=== PATIENT | male | born 1935 ===

== ENCOUNTER 2016-09-16 08:20 | Outpatient (CLI) | payer MEDICARE, OTHER | END 2016-09-16 08:21 | disposition home or self-care (01) | DX: E11.9 Type 2 diabetes mellitus without complications (principal); I25.10 Atherosclerotic heart disease of native coronary artery without angina pectoris; I10 Essential (primary) hypertension ==

== ENCOUNTER 2016-11-17 08:49 | Outpatient (CLI) | payer MEDICARE, OTHER | END 2016-11-17 08:50 | disposition home or self-care (01) | DX: G47.33 Obstructive sleep apnea (adult) (pediatric) (principal) | CPT/HCPCS: 99214; G0463 ==

== ENCOUNTER 2016-12-30 07:37 | Outpatient (CLI) | payer MEDICARE, OTHER | END 2016-12-30 07:38 | disposition home or self-care (01) | DX: I25.10 Atherosclerotic heart disease of native coronary artery without angina pectoris (principal); E11.9 Type 2 diabetes mellitus without complications; E78.5 Hyperlipidemia, unspecified; I10 Essential (primary) hypertension ==

== ENCOUNTER 2017-09-02 08:00 | Outpatient (CLI) | payer MEDICARE, OTHER ==
[2017-09-02 12:59] LABS: ALBUMIN 4.2 g/dL (3.2-5.5); ALBUMIN/GLOBULIN RATIO 1.2 (1.0-2.2); ALKALINE PHOSPHATASE 48 IU/L (42-121); ALT ALANINE AMINOTRANSFERASE 17 IU/L (10-60); AST ASPARTATE AMINOTRANSFERASE 26 IU/L (10-42); BILIRUBIN,TOTAL 0.5 mg/dL (0.2-1.0); BUN - BLOOD UREA NITROGEN 21 mg/dL (6-20); CARBON DIOXIDE - CO2 28 mmol/L (21-32); CHLORIDE 104 mmol/L (101-111); CHOL/HDL RATIO 2.6 (<5.0); CHOLESTEROL 121 mg/dL; CREATININE 1.2 mg/dL (0.6-1.2); GFR - MDRD 58 (>89); GLUCOSE 94 mg/dL (70-100); HDL CHOLESTEROL 46 mg/dL; LDL CHOLESTEROL,CALCULATED 66 mg/dL; LDL/HDL RATIO 1.4 (<3.6); SODIUM 138 mmol/L (135-145); TOTAL PROTEIN 7.7 g/dL (6.7-8.2); VLDL CHOLESTEROL 9 mg/dL
[2017-09-02 13:18] LABS: HB2 TOTAL 14.2 g/dL; HEMOGLOBIN A1C 0.66 g/dL; HEMOGLOBIN A1C % 6.4 % (4.6-6.2)
== END 2017-09-02 08:01 | disposition home or self-care (01) ==
LOC: LAB.WCP 08:00
PROVIDERS: ATTEND Family Medicine
DX: I25.10 Atherosclerotic heart disease of native coronary artery without angina pectoris (principal); E11.9 Type 2 diabetes mellitus without complications; E78.5 Hyperlipidemia, unspecified; I10 Essential (primary) hypertension; Z12.5 Encounter for screening for malignant neoplasm of prostate
CPT/HCPCS: 36415; 80053; 80061; 82043; 83036; G0103; 83721; 84153

== ENCOUNTER 2017-11-29 09:15 | Outpatient (CLI) | payer MEDICARE, OTHER | END 2017-11-29 09:16 | disposition home or self-care (01) | LOC: SC 09:15 | PROVIDERS: ATTEND Internal Medicine Pulmonary Disease | DX: G47.33 Obstructive sleep apnea (adult) (pediatric) (principal) | CPT/HCPCS: 99213; G0463; 99212 ==

== ENCOUNTER 2018-02-22 07:42 | Outpatient (CLI) | payer MEDICARE, OTHER ==
[2018-02-22 13:34] LABS: ALBUMIN 3.9 g/dL (3.2-5.5); ALBUMIN/GLOBULIN RATIO 1.1 (1.0-2.2); ALKALINE PHOSPHATASE 50 IU/L (42-121); ALT ALANINE AMINOTRANSFERASE 17 IU/L (10-60); AST ASPARTATE AMINOTRANSFERASE 28 IU/L (10-42); BILIRUBIN,TOTAL 0.7 mg/dL (0.2-1.0); BUN - BLOOD UREA NITROGEN 26 mg/dL (6-20); CALCIUM 9.1 mg/dL (8.5-10.3); CARBON DIOXIDE - CO2 27 mmol/L (21-32); CHLORIDE 106 mmol/L (101-111); CHOL/HDL RATIO 2.4 (<5.0); CHOLESTEROL 97 mg/dL; CREATININE 1.1 mg/dL (0.6-1.2); GFR - MDRD 64 (>89); GLUCOSE 87 mg/dL (70-100); HDL CHOLESTEROL 41 mg/dL; SODIUM 139 mmol/L (135-145); TOTAL PROTEIN 7.5 g/dL (6.7-8.2)
[2018-02-22 13:55] LABS: HB2 TOTAL 14.1 g/dL; HEMOGLOBIN A1C 0.62 g/dL; HEMOGLOBIN A1C % 6.2 % (4.6-6.2)
[2018-02-22 14:28] LABS: LDL CHOLESTEROL,DIRECT 54 mg/dL; LDLD/HDL RATIO 1.3 (<3.6)
== END 2018-02-22 07:43 | disposition home or self-care (01) ==
LOC: LAB.WCP 07:42
PROVIDERS: ATTEND Family Medicine
DX: E11.9 Type 2 diabetes mellitus without complications (principal); I10 Essential (primary) hypertension; E78.5 Hyperlipidemia, unspecified; I25.10 Atherosclerotic heart disease of native coronary artery without angina pectoris; R04.0 Epistaxis
CPT/HCPCS: 36415; 80053; 80061; 83036; 83721

== ENCOUNTER 2018-03-01 14:03 | Outpatient (CLI) | payer MEDICARE, OTHER | END 2018-03-01 14:04 | disposition home or self-care (01) | LOC: SC 14:03 | PROVIDERS: ATTEND Internal Medicine Pulmonary Disease | DX: G47.33 Obstructive sleep apnea (adult) (pediatric) (principal) | CPT/HCPCS: 99213; G0463; 99212 ==

== ENCOUNTER 2018-09-12 08:00 | Outpatient (CLI) | payer MEDICARE, OTHER ==
[2018-09-12 13:37] LABS: ALBUMIN 4.3 g/dL (3.2-5.5); ALBUMIN/GLOBULIN RATIO 1.2 (1.0-2.2); ALKALINE PHOSPHATASE 48 IU/L (42-121); ALT ALANINE AMINOTRANSFERASE 18 IU/L (10-60); AST ASPARTATE AMINOTRANSFERASE 27 IU/L (10-42); BILIRUBIN,TOTAL 0.6 mg/dL (0.2-1.0); BUN - BLOOD UREA NITROGEN 25 mg/dL (6-20); CALCIUM 9.3 mg/dL (8.5-10.3); CARBON DIOXIDE - CO2 27 mmol/L (21-32); CHLORIDE 106 mmol/L (101-111); CHOL/HDL RATIO 2.6 (<5.0); CHOLESTEROL 107 mg/dL; GFR - MDRD 72 (>89); GLUCOSE 114 mg/dL (70-100); HDL CHOLESTEROL 41 mg/dL; LDL CHOLESTEROL,CALCULATED 58 mg/dL; LDL/HDL RATIO 1.4 (<3.6); SODIUM 139 mmol/L (135-145); TOTAL PROTEIN 7.8 g/dL (6.7-8.2); VLDL CHOLESTEROL 8 mg/dL
[2018-09-12 13:54] LABS: HB2 TOTAL 15.3 g/dL; HEMOGLOBIN A1C 0.71 g/dL; HEMOGLOBIN A1C % 6.4 % (4.6-6.2)
== END 2018-09-12 23:59 | disposition home or self-care (01) ==
LOC: LAB.WCP 08:00
PROVIDERS: ATTEND Family Medicine
DX: E11.9 Type 2 diabetes mellitus without complications (principal); I25.10 Atherosclerotic heart disease of native coronary artery without angina pectoris; E78.5 Hyperlipidemia, unspecified; I10 Essential (primary) hypertension
CPT/HCPCS: 36415; 80053; 80061; 82043; 83036; 83721; 84443

== ENCOUNTER 2019-03-20 | Outpatient (CLI) | payer MEDICARE, OTHER | END 2019-03-20 09:28 | disposition home or self-care (01) | DX: G47.33 Obstructive sleep apnea (adult) (pediatric) (principal) | CPT/HCPCS: 99213; G0463; 99212 ==

== ENCOUNTER 2019-04-12 08:00 | Outpatient (CLI) | payer MEDICARE, OTHER ==
[2019-04-12 12:30] LABS: CREATININE,URINE 174.3 mg/dL; MICROALBUM/CREATININE RATIO,UR 9.8 ug/mg (<30.0); MICROALBUMIN,URINE 1.7 mg/dL (0-300.0)
[2019-04-12 12:36] LABS: CALCIUM 9.2 mg/dL (8.5-10.3); CREATININE 1.1 mg/dL (0.6-1.2)
[2019-04-12 13:29] LABS: HB2 TOTAL 13.6 g/dL; HEMOGLOBIN A1C 0.61 g/dL; HEMOGLOBIN A1C % 6.3 % (4.6-6.2)
== END 2019-04-12 23:59 | disposition home or self-care (01) ==
LOC: LAB.WCP 08:00
PROVIDERS: ATTEND Family Medicine
DX: I25.10 Atherosclerotic heart disease of native coronary artery without angina pectoris (principal); E11.9 Type 2 diabetes mellitus without complications; E78.5 Hyperlipidemia, unspecified; I10 Essential (primary) hypertension; D12.6 Benign neoplasm of colon, unspecified
CPT/HCPCS: 36415; 80048; 82043; 82570; 83036

== ENCOUNTER 2019-07-25 09:00 | Outpatient (CLI) | payer MEDICARE, OTHER ==
[2019-07-25 18:47] LABS: BILIRUBIN,URINE NEGATIVE (NEGATIVE); GLUCOSE, URINE (UA) NEGATIVE (NEGATIVE); KETONES,URINE (UA) TRACE mg/dL (NEGATIVE); LEUKOCYTE ESTERASE, URINE NEGATIVE (NEGATIVE); NITRITE,URINE NEGATIVE (NEGATIVE); OCCULT BLOOD,URINE LARGE (NEGATIVE); PROTEIN,URINE 100 mg/dL (NEGATIVE); UROBILINOGEN,URINE 0.2 (NORMAL) E.U./dL (NORMAL)
[2019-07-25 18:51] LABS: CLARITY,URINE CLOUDY (CLEAR)
[2019-07-25 18:59] LABS: BACTERIA,URINE Rare /HPF (None Seen); RBC,URINE TNTC /HPF (0-5); SQUAMOUS EPITHELIAL CELL,UR RARE Squamous (<= Few)
== END 2019-07-25 23:59 | disposition home or self-care (01) ==
LOC: LAB.WCP 09:00
PROVIDERS: ATTEND Family Medicine
DX: R31.0 Gross hematuria (principal)
CPT/HCPCS: 81001; 81003; 87086

== ENCOUNTER 2019-08-02 08:05 | Outpatient (CLI) | payer MEDICARE, OTHER ==
[2019-08-02 08:50] LABS: CALCIUM 9.4 mg/dL (8.5-10.3); CREATININE 1.2 mg/dL (0.6-1.2)
[2019-08-02] MEDS ORDERED: IOVERSOL 320 100 ML VIAL IVP ONE ×2 (08:53→09:12)
--- NOTE | 2019-08-03 10:36 | CT Report ---
Reason: HEMATURIA GROSS Procedure Date: 08/02/2019 Accession Number: [id number] / [id number] Procedure: CT - IVP CPT Code: Final Report FULL RESULT: EXAM: CT ABDOMEN AND PELVIS WITHOUT AND WITH CONTRAST (CT IVP) EXAM DATE: 08/02/2019 09:15 AM. CLINICAL HISTORY: HEMATURIA GROSS. COMPARISONS: None. TECHNIQUE: Routine helical imaging was performed through the kidneys, ureters and bladder in the precontrast, postcontrast and delayed phase. IV Contrast: 100 cc Optiray 320. Reconstructions: Coronal and sagittal. In accordance with CT protocol optimization, one or more of the following dose reduction techniques were utilized for this exam: automated exposure control, adjustment of mA and/or KV based on patient size, or use of iterative reconstructive technique. FINDINGS: Lung Bases: Unremarkable. Liver: Few small hypoattenuating liver lesions are indeterminate, possibly small cysts. No liver masses. Gallbladder/Bile Ducts: Unremarkable. Spleen: Normal. Pancreas: Normal. Adrenal Glands: Normal. Kidneys/Bladder: Right Kidney/Ureter: No renal or ureteral stones. No hydronephrosis or hydroureter. No renal mass. No filling defects in the right ureter. Left Kidney/Ureter: No renal or ureteral stones. No hydronephrosis or hydroureter. No renal mass. No filling defect in the left ureter. Bladder: No stones. Focal 1.4 x 1.7 cm mass projecting into the lumen of the left inferior urinary bladder () is worrisome for urothelial malignancy. No other urinary bladder masses seen. Peritoneal Cavity/Bowel: Unremarkable stomach. Normal caliber bowel loops without obstruction. No enlarged intraperitoneal or retroperitoneal lymph nodes. No intra-abdominal masses. No inflammation. Pelvic Organs: Enlarged prostate measuring approximately 6 x 6.1 cm with median lobe impression of the inferior bladder neck. No enlarged pelvic or inguinal lymph nodes. Vasculature: No aneurysms or other significant abnormality. Bones: No significant abnormality. Other: None. IMPRESSION: 1. 1.4 x 1.7 cm mass projecting into the lumen of the left inferior urinary bladder just superior to the orifice of the left ureter is worrisome for urothelial malignancy. Cystoscopy should be considered for further evaluation. 2. Otherwise unremarkable appearance of the kidneys and ureters without evidence for calculi or additional masses. 3. Incidental prostatomegaly. 4. No evidence for metastatic disease in the abdomen. RADIA
== END 2019-08-02 08:06 | disposition home or self-care (01) ==
LOC: DI 08:05
PROVIDERS: ATTEND Family Medicine
DX: R31.0 Gross hematuria (principal); N32.89 Other specified disorders of bladder
CPT/HCPCS: 36415; 74178; 80048; Q9967

== ENCOUNTER 2019-09-28 08:00 | Outpatient (CLI) | payer MEDICARE, OTHER ==
[2019-09-28 12:53] LABS: BASOPHILS # (AUTO) 0.1 10^3/uL (0.0-0.1); BASOPHILS % (AUTO) 1.3 %; EOSINOPHILS # (AUTO) 0.2 10^3/uL (0.0-0.7); EOSINOPHILS % (AUTO) 4.9 %; HGB - HEMOGLOBIN 12.7 g/dL (14.0-18.0); LYMPHOCYTES # (AUTO) 1.5 10^3/uL (1.5-3.5); LYMPHOCYTES % (AUTO) 38.2 %; MEAN CORPUSCULAR HEMOGLOBIN 31.1 pg (27.0-31.0); MEAN CORPUSCULAR HGB CONC 33.6 g/dL (32.0-36.0); MEAN CORPUSCULAR VOLUME 92.4 fL (80.0-94.0); MEAN PLATELET VOLUME 10.4 fL (7.4-11.4); MONOCYTES # (AUTO) 0.5 10^3/uL (0.0-1.0); MONOCYTES % (AUTO) 12.2 %; NEUTROPHILS # (AUTO) 1.7 10^3/uL (1.5-6.6); NEUTROPHILS % (AUTO) 43.1 %; PLT - PLATELET COUNT 146 10^3/uL (130-450); RED BLOOD COUNT 4.09 10^6/uL (4.70-6.10); RED CELL DISTRIBUTION WIDTH 13.3 % (12.0-15.0); WHITE BLOOD COUNT 3.9 x10^3/uL (4.8-10.8)
[2019-09-28 13:22] LABS: CREATININE,URINE 135.1 mg/dL; MICROALBUM/CREATININE RATIO,UR 28.9 ug/mg (<30.0); MICROALBUMIN,URINE 3.9 mg/dL (0-300.0)
[2019-09-28 13:24] LABS: ALBUMIN 3.9 g/dL (3.2-5.5); ALBUMIN/GLOBULIN RATIO 1.3 (1.0-2.2); ALKALINE PHOSPHATASE 44 IU/L (42-121); ALT ALANINE AMINOTRANSFERASE 18 IU/L (10-60); AST ASPARTATE AMINOTRANSFERASE 26 IU/L (10-42); BILIRUBIN,TOTAL 0.8 mg/dL (0.2-1.0); BUN - BLOOD UREA NITROGEN 23 mg/dL (6-20); CALCIUM 8.8 mg/dL (8.5-10.3); CARBON DIOXIDE - CO2 26 mmol/L (21-32); CHLORIDE 106 mmol/L (101-111); CHOL/HDL RATIO 3.2 (<5.0); CHOLESTEROL 120 mg/dL; CREATININE 1.1 mg/dL (0.6-1.2); GFR - MDRD 64 (>89); GLUCOSE 78 mg/dL (70-100); HDL CHOLESTEROL 37 mg/dL; LDL CHOLESTEROL,CALCULATED 75 mg/dL; SODIUM 141 mmol/L (135-145); TOTAL PROTEIN 6.9 g/dL (6.7-8.2); VLDL CHOLESTEROL 8 mg/dL
[2019-09-28 13:26] LABS: HB2 TOTAL 13.1 g/dL; HEMOGLOBIN A1C 0.62 g/dL; HEMOGLOBIN A1C % 6.5 % (4.6-6.2)
== END 2019-09-28 23:59 | disposition home or self-care (01) ==
LOC: LAB.WCP 08:00
PROVIDERS: ATTEND Family Medicine
DX: I25.10 Atherosclerotic heart disease of native coronary artery without angina pectoris (principal); E11.9 Type 2 diabetes mellitus without complications; E78.5 Hyperlipidemia, unspecified; I10 Essential (primary) hypertension
CPT/HCPCS: 36415; 80053; 80061; 82043; 82570; 83036; 83721; 84443; 85025

== ENCOUNTER 2020-01-01 11:16 | Outpatient (CLI) | payer MEDICARE, OTHER ==
--- NOTE | 2020-01-01 10:31 | SLEEP CARE CONSULTATION ---
Information from patient questionnaire entered by Hayley Romeo. I have reviewed and concur with the information entered by Hayley Romeo. This document represents the service I personally performed and the decisions made by me, Niurka Gonsalez, RN, MSN, DIRECTOR [employer]. History of Present Illness Service Date and Time: 01/01/2020 1116 Previous diagnosis: Severe, Obstructive Sleep Apnea-Hypopnea Syndrome AHI: 37.5 (in 2012) Reason for follow up: other (8 month) Equipment type: CPAP Equipment obtained from: [facility] (getting supplies as needed) Mask style: Nasal Backup mask available: Yes (old mask ) Last cushion change: a couple months ago Prior sleep studies: Yes CPAP Compliance Data - Data Reviewed with Patient Average duration of nightly device use: 7.2 Compliance rate %: 91.1 (90 days) Current pressure setting (cmH2O): 7-9 Humidity settin Heated hose settin Average residual AHI: 2.3 Average large leak: 1 sec Subjective Patient concerns: reports: nasal congestion (nasal congestion- not interferring with CPAP use ), other (mask dislodging in sleep). denies: aerophagia, mask discomfort, air blowing in eyes, mask leak noise, condensation in mask/hose, dry mouth, nose, throat Observed to snore while using device: No Current pressure setting perceived as: comfortable On therapy, patient: reports: sleeping better, more rested overall. 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 Obstructive Sleep Apnea-Hypopnea Syndrome, severe, with good treatment compliance and good apnea control. On CPAP therapy, the patient has better sleep quality and is more rested overall. Patient was advised to update mask supplies more frequently to reduce mask dislodging with rationale discussed. I will also request new headgear for his mask style that sits lower on base of skull. Nasal congestion can be reduced with a higher humidity. Patient's apnea severity and rationale for treatment to reduce apnea, improve sleep quality and reduce hypertension, cardiovascular and cerebrovascular events was reviewed. 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 In addition, he is advised to take his CPAP to his daughters when he visit. I again reviewed his sleep study results and explained how his rae oxygen was 78%. For maximum benefit of treatment he is advised to use CPAP with all sleep. In addition, consistent CPAP use can reduce risk of some arrhythmias. * Continue auto CPAP pressure at 7-9 cmH2O * Change headgear * Use CPAP with all sleep. * Notify me if snoring with mask or feeling that the pressure is too much or too little * Attempt to lose some weight * Call this office if any problems using CPAP * Return for follow up in 1 year , or sooner if concerns arise Visit Type: Telehealth Video Video Type: [place] [employer] Patient Location: Home Location of Provider: Home Patient agrees and consents to this telehealth visit type: Yes Patient agrees to have their insurance billed: Yes Time Spent with Patient (minutes): 21 Provider Statement: I spent 100% of the Telehealth Video Call with the patient with greater than 50% spent counseling the patient and coordination of care.
== END 2020-01-01 11:17 | disposition home or self-care (01) ==
LOC: SC 11:16
PROVIDERS: ATTEND Nurse Practitioner Family
DX: G47.33 Obstructive sleep apnea (adult) (pediatric) (principal); E66.3 Overweight; Z68.25 Body mass index [BMI] 25.0-25.9, adult

== ENCOUNTER 2020-09-05 08:10 | Outpatient (CLI) | payer MEDICARE, OTHER ==
[2020-09-05 12:05] LABS: BASOPHILS # (AUTO) 0.1 10^3/uL (0.0-0.1); BASOPHILS % (AUTO) 1.3 %; EOSINOPHILS # (AUTO) 0.2 10^3/uL (0.0-0.7); EOSINOPHILS % (AUTO) 6.3 %; HGB - HEMOGLOBIN 12.9 g/dL (14.0-18.0); LYMPHOCYTES # (AUTO) 1.3 10^3/uL (1.5-3.5); LYMPHOCYTES % (AUTO) 35.2 %; MEAN CORPUSCULAR HEMOGLOBIN 30.7 pg (27.0-31.0); MEAN CORPUSCULAR HGB CONC 33.4 g/dL (32.0-36.0); MEAN CORPUSCULAR VOLUME 91.9 fL (80.0-94.0); MONOCYTES # (AUTO) 0.5 10^3/uL (0.0-1.0); MONOCYTES % (AUTO) 12.3 %; NEUTROPHILS # (AUTO) 1.7 10^3/uL (1.5-6.6); NEUTROPHILS % (AUTO) 44.9 %; PLT - PLATELET COUNT 185 10^3/uL (130-450); RED CELL DISTRIBUTION WIDTH 13.2 % (12.0-15.0); WHITE BLOOD COUNT 3.8 x10^3/uL (4.8-10.8)
[2020-09-05 12:48] LABS: ALBUMIN 4.3 g/dL (3.2-5.5); ALBUMIN/GLOBULIN RATIO 1.3 (1.0-2.2); ALKALINE PHOSPHATASE 53 IU/L (42-121); ALT ALANINE AMINOTRANSFERASE 19 IU/L (10-60); AST ASPARTATE AMINOTRANSFERASE 27 IU/L (10-42); BILIRUBIN,TOTAL 0.5 mg/dL (0.2-1.0); BUN - BLOOD UREA NITROGEN 26 mg/dL (6-20); CALCIUM 9.3 mg/dL (8.5-10.3); CARBON DIOXIDE - CO2 27 mmol/L (21-32); CHLORIDE 106 mmol/L (101-111); CHOL/HDL RATIO 2.5 (<5.0); CHOLESTEROL 118 mg/dL; CREATININE 1.3 mg/dL (0.6-1.2); GLUCOSE 92 mg/dL (70-100); HDL CHOLESTEROL 47 mg/dL; HEMOGLOBIN A1c% 6.7 % (4.27-6.07); TOTAL PROTEIN 7.6 g/dL (6.7-8.2)
[2020-09-05 12:50] LABS: CREATININE,URINE 155.6 mg/dL; MICROALBUM/CREATININE RATIO,UR 2.6 ug/mg (<30.0); MICROALBUMIN,URINE 0.4 mg/dL (0-300.0)
== END 2020-09-05 23:59 | disposition home or self-care (01) ==
LOC: LAB.WCP 08:10
PROVIDERS: ATTEND Internal Medicine
DX: E11.9 Type 2 diabetes mellitus without complications (principal)
CPT/HCPCS: 36415; 80053; 80061; 82043; 82570; 83036; 83721; 84443; 85025

== ENCOUNTER 2021-01-08 08:00 | Outpatient (CLI) | payer MEDICARE, OTHER ==
[2021-01-08 12:07] LABS: CALCIUM 9.1 mg/dL (8.5-10.3); CREATININE 1.2 mg/dL (0.6-1.2); POTASSIUM 3.4 mmol/L (3.5-5.0)
[2021-01-08 12:32] LABS: ESTIMATED AVERAGE GLUCOSE 134 mg/dL (70-100); HEMOGLOBIN A1c% 6.3 % (4.27-6.07)
== END 2021-01-08 23:59 | disposition home or self-care (01) ==
LOC: LAB.WCP 08:00
PROVIDERS: ATTEND Internal Medicine
DX: E11.9 Type 2 diabetes mellitus without complications (principal)
CPT/HCPCS: 36415; 80048; 83036

== ENCOUNTER 2021-02-03 13:00 | Outpatient (CLI) | payer MEDICARE, OTHER ==
--- NOTE | 2021-02-03 13:24 | SLEEP CARE CONSULTATION ---
Information from patient questionnaire entered by Hayley Romeo. I have reviewed and concur with the information entered by Hayley Romeo. This document represents the service I personally performed and the decisions made by me, Fransisco Winter MD, [facility]. History of Present Illness Service Date and Time: 02/03/2021 1300 Previous diagnosis: Severe, Obstructive Sleep Apnea-Hypopnea Syndrome AHI: 37.5 (in 2011) Reason for follow up: annual (last seen 12/2019) Equipment type: CPAP Equipment obtained from: [facility] (no longer giving supplies) Mask style: Nasal Prior sleep studies: Yes Year and Where: 2011 - [facility] Type of Sleep Study: Polysomnography HPI additional information: HPI: Mr. Mason returned today for an annual follow up of nasal CPAP therapy. He was diagnosed to have severe obstructive sleep apnea-hypopnea syndrome 37.5 in 2011). The patient wears the [employer]ics DreamWear nasal cushion mask. He continues to use the device nightly and all through the night. The compliance report shows usage in 169 nights out of the past 180 nights, averaging 6.9 hours a night. He complained of no particular problem with the device such as soreness on the face, dry nose, epistaxis, nasal congestion or headache. He thinks that the pressure of 7 -9 cmH2O is comfortable. On the CPAP therapy he does not notice much difference. His notices no snore at all with or without CPAP. The average residual AHI is 2.8; and average time in large leak per day is 6 seconds. The 90th percentile pressure is 8.5 cmH2O. CPAP Compliance Data - Data Reviewed with Patient Average duration of nightly device use: 7 hr 2 min Compliance rate %: 91.7 (180 days) Current pressure setting (cmH2O): 7-9 Humidity settin Heated hose settin Average residual AHI: 2.8 Average large leak: 6 sec Subjective Patient concerns: reports: other (don't feel the pressure after it has been on) Initial [place] Sleepiness Scale score: 9 (in 2011) Current [place] Sleepiness Scale score: 5 Allergies and Home Medications Drug allergies reviewed: Yes Home medication list reviewed: Yes Review of Systems Review of systems same as previous: Yes Physical Exam Height: 5 ft 10 in Weight: 178 lb Body Mass Index: 25.5 BMI Classification: Overweight Impression and Plan IMPRESSION: 1. Obstructive Sleep Apnea-Hypopnea Syndrome, severe, with the patient continuing to do well on nasal CPAP therapy. He has excellent compliance and significant clinical improvement. The current pressure appears effective and comfortable. Because the patients Agustin Baton DreamStation device is being recalled, I recommend he stop using it, especially when there is no clear subjective benefit from the treatment. PLAN: 1. Discontinue CPAP. 2. [place] her device at [email or web address]. 3. Return for a follow up in 2 months. If he continues to do fine without using a CPAP, I will repeat the in-laboratory polysomnography to see if he still has significant sleep disordered breathing. Visit Type: In Office Time Spent with Patient (minutes): 15 Provider Statement: I spent 100% of the Face to Face Visit with the patient with greater than 50% spent counseling the patient and coordination of care.
== END 2021-02-03 13:01 | disposition home or self-care (01) ==
LOC: SC 13:00
PROVIDERS: ATTEND Internal Medicine Pulmonary Disease
DX: G47.33 Obstructive sleep apnea (adult) (pediatric) (principal); E66.3 Overweight; Z68.25 Body mass index [BMI] 25.0-25.9, adult
CPT/HCPCS: 99212; G0463

== ENCOUNTER 2021-04-07 09:16 | Outpatient (CLI) | payer MEDICARE, OTHER ==
--- NOTE | 2021-04-07 11:10 | SLEEP CARE CONSULTATION ---
Information from patient questionnaire entered by Hayley Romeo. I have reviewed and concur with the information entered by Hayley Romeo. This document represents the service I personally performed and the decisions made by me, Fransisco Winter MD, [facility]. History of Present Illness Service Date and Time: 04/07/2021915 Previous diagnosis: Severe, Obstructive Sleep Apnea-Hypopnea Syndrome AHI: 37.5 (in 2011) Reason for follow up: other (2 month) Equipment type: CPAP Equipment obtained from: [facility] (no longer giving supplies) Mask style: Nasal Prior sleep studies: Yes Year and Where: 2011 - [facility] Type of Sleep Study: Polysomnography HPI additional information: HPI: Mr. Mason returned today for an annual follow up of nasal CPAP therapy after instructed to discontinue CPAP usage because of the recall (he was recommended to discontinue because he said he slept just fine without it). He was diagnosed to have severe obstructive sleep apnea-hypopnea syndrome 37.5 in 2011). The plan is to see how is does off the treatment. He, however, continues to use the device nightly to about 4 am then takes it off and sleep a few more hours. He again states that he would rather not use the CPAP if he does not have too. CPAP Compliance Data - Data Reviewed with Patient Average duration of nightly device use: 6 hr 42 min Compliance rate %: 80 (60 days) Current pressure setting (cmH2O): 7-9 Humidity settin Heated hose settin Average residual AHI: 3.4 Average large leak: 0 Subjective Initial [place] Sleepiness Scale score: 9 (in 2011) Current [place] Sleepiness Scale score: 2 Allergies and Home Medications Drug allergies reviewed: Yes Home medication list reviewed: Yes Review of Systems Review of systems same as previous: Yes Physical Exam Height: 5 ft 10 in Weight: 178 lb Body Mass Index: 25.5 BMI Classification: Overweight Impression and Plan IMPRESSION: 1. Obstructive Sleep Apnea-Hypopnea Syndrome, severe, with the patient continuing use his CPAP regularly. Apparently, he does not recall being instructed to not use his device during his last clinic visit. PLAN: 1. Discontinue CPAP. 2. Order a home sleep apnea test (HSAT). 3. Return for a follow after the test. Follow up with Sleep Care in: 1-2 months Visit Type: In Office Time Spent with Patient (minutes): 15 Provider Statement: I spent 100% of the Face to Face Visit with the patient with greater than 50% spent counseling the patient and coordination of care.
== END 2021-04-07 09:17 | disposition home or self-care (01) ==
LOC: SC 09:16
PROVIDERS: ATTEND Internal Medicine Pulmonary Disease
DX: G47.33 Obstructive sleep apnea (adult) (pediatric) (principal)
CPT/HCPCS: 99212; G0463

== ENCOUNTER 2021-04-10 08:55 | Outpatient (CLI) | payer MEDICARE, OTHER | END 2021-04-10 08:56 | disposition home or self-care (01) | LOC: SC 08:55 | PROVIDERS: ATTEND Internal Medicine Pulmonary Disease | DX: G47.33 Obstructive sleep apnea (adult) (pediatric) (principal); R09.02 Hypoxemia | CPT/HCPCS: G0399 ×2; 95806 ==

== ENCOUNTER 2021-12-15 09:55 | Outpatient (CLI) | payer MEDICARE, OTHER ==
[2021-12-15 12:49] LABS: CALCIUM 9.3 mg/dL (8.5-10.3); CREATININE 1.3 mg/dL (0.6-1.2); POTASSIUM 3.5 mmol/L (3.5-5.0)
[2021-12-15 13:13] LABS: ESTIMATED AVERAGE GLUCOSE 140 mg/dL (70-100); HEMOGLOBIN A1c% 6.5 % (4.27-6.07)
[2021-12-15 13:21] LABS: MICROALBUM/CREATININE RATIO,UR 25.8 ug/mg (<30.0); MICROALBUMIN,URINE 3.4 mg/dL (0-300.0)
== END 2021-12-15 09:56 | disposition home or self-care (01) ==
LOC: LAB.N 09:55
PROVIDERS: ATTEND Nurse Practitioner
DX: E11.9 Type 2 diabetes mellitus without complications (principal)
CPT/HCPCS: 36415; 80048; 82043; 82570; 83036

== ENCOUNTER 2022-07-27 13:56 | Outpatient (CLI) | payer MEDICARE, OTHER ==
--- NOTE | 2022-07-27 14:39 | XRAY Report ---
PROCEDURE: Chest 2 View X-Ray INDICATIONS: PNEUMONIA TECHNIQUE: 2 views of the chest were acquired. COMPARISON: Lung bases on CT IVP 08/02/2019. FINDINGS: Surgical changes and devices: Post median sternotomy and CABG. Lungs and pleura: No pleural effusions or pneumothorax. Trace left basilar opacity. No silhouetting seen. Mediastinum: Mediastinal contours are normal. Heart size is normal. Bones and chest wall: No suspicious bony abnormalities. Soft tissues appear unremarkable. IMPRESSION: Trace left basilar opacity. Favor atelectasis over pneumonia. Reviewed by: Kd Pineda MD on 07/27/2022 2:38 PM PST Approved by: Kd Pineda MD on 07/27/2022 2:38 PM PST Station ID: [id number]
== END 2022-07-27 13:57 | disposition home or self-care (01) ==
LOC: DI 13:56
PROVIDERS: ATTEND Nurse Practitioner
DX: J18.9 Pneumonia, unspecified organism (principal)

== ENCOUNTER 2022-08-31 13:18 | Outpatient (CLI) | payer MEDICARE, OTHER ==
[2022-08-31 20:04] VITALS: BP 142/60
--- NOTE | 2022-08-31 20:04 | SLEEP CARE CONSULTATION ---
Information from patient questionnaire entered by Yuniel Carbajal. I have reviewed and concur with the information entered by Yuniel Carbajal. This document represents the service I personally performed and the decisions made by me, Fransisco Winter MD, [facility]. History of Present Illness Service Date and Time: 08/31/2022 1318 Previous diagnosis: Severe, Obstructive Sleep Apnea-Hypopnea Syndrome AHI: 37.5 (in 2011) Reason for follow up: annual (LAST SEEN 03/2021) Equipment type: CPAP (WOOD) Equipment obtained from: [employer] [facility] (no longer giving supplies) Mask style: Nasal Prior sleep studies: Yes Year and Where: 2011 - [facility] Type of Sleep Study: Polysomnography HPI additional information: Mr. Mason was diagnosed to have moderate obstructive sleep apnea-hypopnea syndrome and returns today for follow up of CPAP therapy. The patient purchased the device from [employer] [facility]. He wears a nasal mask. He uses the [employer] DreamStation 1 nightly and all through the night (this is a replacement to his recalled machine). The compliance report shows that he uses the device 141 nights out of the past 180 nights, averaging 6.4 hours a night. He complains of no particular problem with the device such as soreness on the face, dry nose, epistaxis, nasal congestion or headache. He thinks that the pressure of 7 - 9 cmH2O is comfortable. On the CPAP therapy he notices improvement in his sleep quality, and that he wakes up feeling fresher in the morning and more awake/alert during the day. His notices no snore at all. [place] Sleepiness Scale score is 7. The average residual AHI is 3.7 ; and average time in large leak per day is 44 seconds a night. The 90th percentile pressure is 8.5 cmH2O. Sleep Study - Results Type of Sleep Study: Polysomnography Prior sleep studies: Yes Year and Where: 2011 - [facility] CPAP Compliance Data - Data Reviewed with Patient Average duration of nightly device use: 6HRS, 25MIN 35SEC Compliance rate %: 91.7 (02/18/22-08/16/22) Current pressure setting (cmH2O): 7-9 Average residual AHI: 3.7 Subjective Initial [place] Sleepiness Scale score: 9 (in 2011) Current [place] Sleepiness Scale score: 7 (08/31/22) Allergies and Home Medications Drug allergies reviewed: Yes Home medication list reviewed: Yes Allergy and home medication list: Allergies No Known Drug Allergies Allergy (Verified 01/31/14 20:54) Review of Systems Review of systems same as previous: Yes Physical Exam Vital signs obtained and entered by: YUNIEL Yeung MA Blood Pressure: 142/60 (LEFT ARM) Cuff size: regular Heart Rate: 67 O2 Saturation: 97 Height: 5 ft 10 in Weight: 173 lb 12.8 oz Body Mass Index: 24.9 BMI Classification: Normal Impression and Plan IMPRESSION: 1. Obstructive Sleep Apnea-Hypopnea Syndrome, moderate (AHI was 18.3 by a home sleep apnea test in 2020) with the patient continuing to do well on nasal CPAP therapy. He has good compliance and significant clinical benefits. The current pressure appears effective and comfortable. Overall, he is very satisfied with treatment and plans to continue with it long-term. No adjustment is necessary today. Because he has lost more weight (182 down to 168 lbs) and does not snore when not using his CPAP, I will repeat the in-laboratory polysomnography to make sure he still has significant sleep-disordered breathing. PLAN: 1. Continue with autoCPAP set at 7 - 9 cm H2O. 1. Schedule an in-laboratory polysomnography. 2. Return for follow up after the sleep study. Follow up with Sleep Care in: 1-2 months Plan: PSG Visit Type: In Office Time Spent with Patient (minutes): 15 Provider Statement: I spent 100% of the Face to Face Visit with the patient with greater than 50% spent counseling the patient and coordination of care.
== END 2022-08-31 13:19 | disposition home or self-care (01) ==
LOC: SC 13:18
PROVIDERS: ATTEND Internal Medicine Pulmonary Disease
DX: G47.33 Obstructive sleep apnea (adult) (pediatric) (principal)
CPT/HCPCS: 99212; G0463

== ENCOUNTER 2022-09-24 20:33 | Outpatient (CLI) | payer MEDICARE, OTHER | END 2022-09-24 20:34 | disposition home or self-care (01) | LOC: SC 20:33 | PROVIDERS: ATTEND Internal Medicine Pulmonary Disease | DX: G47.33 Obstructive sleep apnea (adult) (pediatric) (principal) | CPT/HCPCS: 95810 ==

== ENCOUNTER 2022-10-05 14:00 | Outpatient (CLI) | payer MEDICARE, OTHER ==
--- NOTE | 2022-10-05 12:08 | SLEEP CARE CONSULTATION ---
Information from patient questionnaire entered by Kayleigh Carbajal. I have reviewed and concur with the information entered by Kayleigh Carbajal. This document represents the service I personally performed and the decisions made by me, Fransisco Winter MD, [facility]. History of Present Illness Service Date and Time: 10/05/2022 1140 Initial [employer] Sleepiness Scale score: 9 (in 2011) Current [employer] Sleepiness Scale score: 4 (10/05/22) Additional HPI information: Mr. Mason was called for follow up of the sleep study he had on 09/24/2022. The polysomnography showed that the patient had reduced sleep efficiency due to frequent awakenings throughout the night. The sleep architecture was abnormal for sleep fragmentation and reduced amount of time spent in REM and slow wave sleep (N3). Respiratory monitoring showed severe obstructive sleep apnea- hypopnea (AHI = 35.6) associated with frequent arousals, oxyhemoglobin desaturation and mild hypoxia (rae oxygen saturation of 82%). The respiratory events occurred predominantly during supine sleep (supine AHI = 65.1; non-supine = 6.18). Snore was moderate in intensity. There was no significant periodic leg movement of sleep. Cardiac rhythm was sinus rhythm with frequent premature ventricular contractions, occasionally in trigeminy. No abnormal behavior (parasomnia) observed during the night. The patient was informed of these findings. I explained to him the pathophysiology behind obstructive sleep apnea. The patient is presently using his CPAP every night and all night set at 7 9 cmH2O. Sleep Study - Results Type of Sleep Study: Polysomnography (COMPLETED 09-24-22) Prior sleep studies: Yes Year and Where: 2011 - [facility] Allergies and Home Medications Drug allergies reviewed: Yes Home medication list reviewed: Yes Allergy and home medication list: Allergies No Known Drug Allergies Allergy (Verified 01/31/14 20:54) Review of Systems Review of systems same as previous: Yes Physical Exam Vital signs obtained and entered by: VIA MONICA Yeung MA Height: 5 ft 10 in (PER PT ) Weight: 170 lb (PER PT) Body Mass Index: 24.3 BMI Classification: Normal Impression and Plan IMPRESSION: 1. Obstructive Sleep Apnea-Hypopnea Syndrome, severe, associated with mild hypoxemia and sleep fragmentation. The patient is already on CPAP therapy but wondering if his recent weight loss improves the sleep-related breathing disorder. Apparently, it did not. The patient plans to continue using his CPAP. PLAN: 1. Continue CPAP set at 7 - 9 cm H2O. 2. Return for follow up in a year or earlier if there is any problem. Follow up with Sleep Care in: 1 year Visit Type: Telehealth Phone Patient Location: Home Location of Provider: Office Patient agrees and consents to this telehealth visit type: Yes Patient agrees to have their insurance billed: Yes Time Spent with Patient (minutes): 15 Provider Statement: I spent 100% of the Telehealth Phone Call with the patient with greater than 50% spent counseling the patient and coordination of care.
== END 2022-10-05 14:01 | disposition home or self-care (01) ==
LOC: SC 14:00
PROVIDERS: ATTEND Internal Medicine Pulmonary Disease
DX: G47.33 Obstructive sleep apnea (adult) (pediatric) (principal)

== ENCOUNTER 2022-12-31 08:00 | Outpatient (CLI) | payer MEDICARE, OTHER | END 2022-12-31 23:59 | disposition home or self-care (01) | LOC: LAB.N 08:00 | PROVIDERS: ATTEND Internal Medicine Hematology & Oncology | DX: C90.00 Multiple myeloma not having achieved remission (principal) | CPT/HCPCS: 81599; 84156; 84166; 86335 ==

== ENCOUNTER 2023-01-07 07:30 | Outpatient (CLI) | payer MEDICARE, OTHER ==
[2023-01-07] MEDS ORDERED: LIDOCAINE-MPF 1% 5 ML VIAL ONE (08:27)
[2023-01-07 08:29] LABS: INR 1.1 (0.8-1.2); PT - PROTHROMBIN TIME 11.9 secs (9.9-12.6)
[2023-01-07] MEDS ORDERED: fentaNYL 100 MCG/2 ML VIAL ONE (08:31)
[2023-01-07] MEDS ORDERED: MIDAZOLAM 2 MG/2 ML VIAL ONE (08:31)
[2023-01-07 08:36] LABS: PARTIAL THROMBOPLASTIN TIME 27.7 secs (24.9-33.3)
[2023-01-07] MEDS ORDERED: fentaNYL 100 MCG/2 ML VIAL IVP SCH (09:05)
[2023-01-07] MEDS ORDERED: MIDAZOLAM 2 MG/2 ML VIAL IVP ONE (09:05)
[2023-01-07] MEDS ORDERED: LACTATED RINGERS 500 ML IV ONE (09:34)
--- NOTE | 2023-01-07 10:02 | CT Report ---
PROCEDURE: BONE MARROW BX W/ASPIRATION Sedation analgesia for 15 minutes. INDICATIONS: MYELOMA TECHNIQUE: The indications, alternatives, benefits, risks, and possible complications of the procedure were comm unicated to the patient. Informed written consent from the patient was obtained and placed in the art. Continuous EKG and hemodynamic monitoring was started by trained personnel. For radiation dose reduction, the following was used: automated exposure control, adjustment of mA and/or kV according to patient size. The patient was brought to the CT suite and parole or probation officer spiral CT imaging was performed with localization g rid. The appropriate site for percutaneous access to the biopsy target was marked, was prepped and d raped sterilely, and was infused with local anaesthesia. Under CT guidance, a core biopsy trocar and needle set was advanced to the biopsy target, and specimen(s) were obtained. The trocar and needle were then removed, and the patient was sent for post-procedure monitoring. COMPARISON: None. FINDINGS: Biopsy site: Right posterior iliac bone. Needle: 11 gauge biopsy needle with introducer trocar. Number of passes: 1 Medications: 1% lidocaine for local anaesthesia. IV Fentanyl and Versed for conscious sedation for 15 minutes (see nursing record). Complications: None. IMPRESSION: Successful CT-guided bone marrow aspiration and biopsy. Reviewed by: Gerald Mercer MD on 01/07/2023 10:01 AM PDT Approved by: Gerald Mercer MD on 01/07/2023 10:01 AM PDT Station ID: [id number]
[2023-01-07 12:03] VITALS: BP 125/60
== END 2023-01-07 07:31 | disposition home or self-care (01) ==
LOC: DI 07:30
PROVIDERS: ATTEND Internal Medicine Hematology & Oncology
DX: C90.00 Multiple myeloma not having achieved remission (principal); N18.30 Chronic kidney disease, stage 3 unspecified; D64.9 Anemia, unspecified; E61.1 Iron deficiency; E29.1 Testicular hypofunction; D72.819 Decreased white blood cell count, unspecified
CPT/HCPCS: 36415; 38222; 82947; 85610; 85730; 88184; 88185; 88305; 88311; 88313; 88341; 88360; J7120

== ENCOUNTER 2023-03-17 07:45 | Outpatient (CLI) | payer MEDICARE, OTHER ==
[2023-03-17 12:16] LABS: EOSINOPHILS # (AUTO) 0.3 10^3/uL (0.0-0.7); HCT - HEMATOCRIT 37.9 % (42.0-52.0); HGB - HEMOGLOBIN 12.8 g/dL (14.0-18.0); LYMPHOCYTES # (AUTO) 1.4 10^3/uL (1.5-3.5); LYMPHOCYTES % (AUTO) 33.5 %; MEAN CORPUSCULAR HEMOGLOBIN 30.9 pg (27.0-31.0); MEAN CORPUSCULAR HGB CONC 33.8 g/dL (32.0-36.0); MEAN CORPUSCULAR VOLUME 91.5 fL (80.0-94.0); MEAN PLATELET VOLUME 10.1 fL (7.4-11.4); MONOCYTES # (AUTO) 0.5 10^3/uL (0.0-1.0); MONOCYTES % (AUTO) 11.7 %; NEUTROPHILS # (AUTO) 1.9 10^3/uL (1.5-6.6); NEUTROPHILS % (AUTO) 46.6 %; PLT - PLATELET COUNT 179 10^3/uL (130-450); RED BLOOD COUNT 4.14 10^6/uL (4.70-6.10); RED CELL DISTRIBUTION WIDTH 13.2 % (12.0-15.0); WHITE BLOOD COUNT 4.1 x10^3/uL (4.8-10.8)
[2023-03-17 13:11] LABS: ESTIMATED AVERAGE GLUCOSE 137 mg/dL (70-100); HEMOGLOBIN A1c% 6.4 % (4.27-6.07)
[2023-03-17 13:32] LABS: ALBUMIN 4.4 g/dL (3.2-5.5); ALBUMIN/GLOBULIN RATIO 1.3 (1.0-2.2); ALKALINE PHOSPHATASE 63 IU/L (42-121); ALT ALANINE AMINOTRANSFERASE 15 IU/L (10-60); AST ASPARTATE AMINOTRANSFERASE 21 IU/L (10-42); BILIRUBIN,TOTAL 0.4 mg/dL (0.2-1.0); BUN - BLOOD UREA NITROGEN 28 mg/dL (6-20); CALCIUM 9.6 mg/dL (8.5-10.3); CARBON DIOXIDE - CO2 28 mmol/L (21-32); CHLORIDE 104 mmol/L (101-111); CHOL/HDL RATIO 2.3 (<5.0); CHOLESTEROL 124 mg/dL; CREATININE 1.4 mg/dL (0.6-1.3); GFR - MDRD 48 (>89); GLUCOSE 170 mg/dL (74-104); HDL CHOLESTEROL 53 mg/dL; LDL CHOLESTEROL,CALCULATED 57 mg/dL; LDL/HDL RATIO 1.1 (<3.6); POTASSIUM 3.8 mmol/L (3.5-4.5); SODIUM 139 mmol/L (135-145); TOTAL PROTEIN 7.8 g/dL (6.4-8.9); TRIGLYCERIDES 68 mg/dL (48-352); VLDL CHOLESTEROL 14 mg/dL
[2023-03-18 18:07] LABS: KAPPA FREE LT CHAINS SERUM 43.9 mg/L (3.3-19.4); KAPPA/LAMBDA RATIO SERUM 3.18 (0.26-1.65); LAMBDA FREE LT CHAINS SERUM 13.8 mg/L (5.7-26.3)
[2023-03-19 15:09] LABS: A/G RATIO 1.1 (0.7-1.7); ALBUMIN 3.8 g/dL (2.9-4.4); ALPHA-1-GLOBULIN 0.2 g/dL (0.0-0.4); ALPHA-2-GLOBULIN 0.9 g/dL (0.4-1.0); BETA GLOBULIN 0.9 g/dL (0.7-1.3); GAMMA GLOBULIN 1.5 g/dL (0.4-1.8); GLOBULIN TOTAL 3.6 g/dL (2.2-3.9); IMMUNOGLOBULIN A (IGA) 44 mg/dL (61-437); IMMUNOGLOBULIN G (IGG) 1746 mg/dL (603-1613); IMMUNOGLOBULIN M (IGM) 22 mg/dL (15-143); M-SPIKE 1.2 g/dL (Not Observed); PROTEIN TOTAL 7.4 g/dL (6.0-8.5)
== END 2023-03-17 07:46 | disposition home or self-care (01) ==
LOC: LAB.N 07:45
PROVIDERS: ATTEND Internal Medicine
DX: E11.9 Type 2 diabetes mellitus without complications (principal); E78.5 Hyperlipidemia, unspecified; D47.2 Monoclonal gammopathy
CPT/HCPCS: 36415; 80053; 80061; 82784; 83036; 83521; 83721; 84155; 84165; 85025; 86334

== ENCOUNTER 2023-05-13 11:04 | Outpatient (CLI) | payer MEDICARE, OTHER ==
--- NOTE | 2023-05-13 14:15 | XRAY Report ---
PROCEDURE: Foot 3 View LT INDICATIONS: PAIN IN LT FOOT TECHNIQUE: 3 views of the foot were acquired. COMPARISON: None. FINDINGS: Bones: No fractures or dislocations. Osteoarthritic changes are seen throughout left foot No suspic ious bony lesions. Soft tissues: No suspicious soft tissue calcifications or masses. IMPRESSION: No acute left foot fracture or dislocation. Left foot osteoarthritis. No gross soft tissue abnormalit ies. Reviewed by: Maxi Sampson MD on 05/13/2023 2:14 PM PDT Approved by: Maxi Sampson MD on 05/13/2023 2:14 PM PDT Station ID: [id number]
== END 2023-05-13 11:05 | disposition home or self-care (01) ==
LOC: DI 11:04
PROVIDERS: ATTEND Physician Assistant Medical
DX: M19.072 Primary osteoarthritis, left ankle and foot (principal)

== ENCOUNTER 2023-05-19 07:44 | Outpatient (CLI) | payer MEDICARE, OTHER ==
[2023-05-19 12:02] LABS: BASOPHILS % (AUTO) 1.3 %; EOSINOPHILS # (AUTO) 0.2 10^3/uL (0.0-0.7); EOSINOPHILS % (AUTO) 7.3 %; LYMPHOCYTES % (AUTO) 31.3 %; MEAN CORPUSCULAR HEMOGLOBIN 30.7 pg (27.0-31.0); MEAN CORPUSCULAR HGB CONC 33.3 g/dL (32.0-36.0); MEAN CORPUSCULAR VOLUME 92.1 fL (80.0-94.0); MEAN PLATELET VOLUME 10.4 fL (7.4-11.4); MONOCYTES # (AUTO) 0.4 10^3/uL (0.0-1.0); MONOCYTES % (AUTO) 13.1 %; NEUTROPHILS # (AUTO) 1.5 10^3/uL (1.5-6.6); NEUTROPHILS % (AUTO) 46.7 %; PLT - PLATELET COUNT 178 10^3/uL (130-450); RED BLOOD COUNT 3.91 10^6/uL (4.70-6.10); RED CELL DISTRIBUTION WIDTH 13.2 % (12.0-15.0); WHITE BLOOD COUNT 3.1 x10^3/uL (4.8-10.8)
[2023-05-19 12:18] LABS: ALBUMIN 4.2 g/dL (3.2-5.5); ALBUMIN/GLOBULIN RATIO 1.3 (1.0-2.2); BILIRUBIN,TOTAL 0.4 mg/dL (0.2-1.0); CALCIUM 9.3 mg/dL (8.5-10.3); CREATININE 1.3 mg/dL (0.6-1.3); POTASSIUM 3.7 mmol/L (3.5-4.5); TOTAL PROTEIN 7.4 g/dL (6.4-8.9)
[2023-05-20 17:08] LABS: KAPPA FREE LT CHAINS SERUM 46.1 mg/L (3.3-19.4); KAPPA/LAMBDA RATIO SERUM 3.52 (0.26-1.65); LAMBDA FREE LT CHAINS SERUM 13.1 mg/L (5.7-26.3)
[2023-05-24 16:09] LABS: A/G RATIO 1.1 (0.7-1.7); ALBUMIN 3.7 g/dL (2.9-4.4); ALPHA-1-GLOBULIN 0.2 g/dL (0.0-0.4); ALPHA-2-GLOBULIN 0.8 g/dL (0.4-1.0); BETA GLOBULIN 0.8 g/dL (0.7-1.3); GAMMA GLOBULIN 1.6 g/dL (0.4-1.8); GLOBULIN TOTAL 3.4 g/dL (2.2-3.9); IMMUNOGLOBULIN A (IGA) 41 mg/dL (61-437); IMMUNOGLOBULIN G (IGG) 1679 mg/dL (603-1613); IMMUNOGLOBULIN M (IGM) 28 mg/dL (15-143); M-SPIKE 1.2 g/dL (Not Observed); PROTEIN TOTAL 7.1 g/dL (6.0-8.5)
== END 2023-05-19 07:45 | disposition home or self-care (01) ==
LOC: LAB.N 07:44
PROVIDERS: ATTEND Internal Medicine Hematology & Oncology
DX: D47.2 Monoclonal gammopathy (principal)
CPT/HCPCS: 36415; 80053; 82784; 83521; 84155; 84165; 85025; 86334

== ENCOUNTER 2023-10-04 11:33 | Outpatient (CLI) | payer MEDICARE, OTHER ==
--- NOTE | 2023-10-06 13:07 | SLEEP CARE CONSULTATION ---
Information from patient questionnaire entered by Yuniel Carbajal. I have reviewed and concur with the information entered by Yuniel Carbajal. This document represents the service I personally performed and the decisions made by me, Fransisco Winter MD, [facility]. History of Present Illness Service Date and Time: 10/04/2023 1133 Previous diagnosis: Severe, Obstructive Sleep Apnea-Hypopnea Syndrome AHI: 37.5 (in 2011) Reason for follow up: annual (LAST SEEN 09/2022) Equipment type: CPAP (WOOD NEED MACHINE) Equipment obtained from: [employer] (no longer giving supplies) Mask style: Nasal Prior sleep studies: Yes Year and Where: 2011 - [facility] Type of Sleep Study: Polysomnography (COMPLETED 09-24-22) HPI additional information: Mr. Mason was diagnosed to have severe obstructive sleep apnea-hypopnea syndrome and returns today for follow up of CPAP therapy. The patient purchased the [employer]ics DreamStation autoCPAP from [employer] and was fitted with a nasal mask. He uses the device almost nightly and all through the night. The compliance report shows that he uses the device 345 nights out of the past 365 nights, averaging 6.8 hours a night. He complains of no particular problem with the device such as soreness on the face, dry nose, epistaxis, nasal congestion or headache. He thinks that the pressure of 7 - 9 cmH2O is too low. On the CPAP therapy he notices improvement in his sleep quality, and that he wakes up feeling fresher in the morning and more awake/alert during the day. [place] Sleepiness Scale score is 3. The average residual AHI is 3.3; and average time in large leak per day is 1.3 minutes a night. The 90th percentile pressure is 8.4 cmH2O. Sleep Study - Results Type of Sleep Study: Polysomnography (COMPLETED 09-24-22) Prior sleep studies: Yes Year and Where: 2011 - [facility] Subjective Initial Keystone Sleepiness Scale score: 9 (in 2011) Current Keystone Sleepiness Scale score: 3 (10/04/23) Allergies and Home Medications Drug allergies reviewed: Yes Home medication list reviewed: Yes Allergy and home medication list: Allergies No Known Drug Allergies Allergy (Verified 09/30/23 15:26) Review of Systems Review of systems same as previous: Yes (MO CHANGE) Physical Exam Vital signs obtained and entered by: YUNIEL Yeung MA Blood Pressure: 136/66 (LEFT ARM) Cuff size: regular Heart Rate: 57 O2 Saturation: 98 Height: 5 ft 10 in Weight: 183 lb 9.6 oz Body Mass Index: 26.3 BMI Classification: Overweight Impression and Plan IMPRESSION: 1. Obstructive Sleep Apnea-Hypopnea Syndrome, severe, with the patient continuing to do well on nasal CPAP therapy. He has excellent compliance and significant clinical benefits. The current pressure appears effective and comfortable. Overall, he is very satisfied with treatment and plans to continue with it long-term. No adjustment is necessary today. Because the CPAP is now older than the useful life of 5 years, I will order the patient a new one and make it an autoCPAP set between 9 and 11 cmH2O. PLAN: 1. Raise the autoCPAP set to 9 - 11 cm H2O. 2. Prescription made for a new autoCPAP, heated humidifier, and related supplies. 3. Return for a follow up in a year or earlier if there is any problem. Prescriptions: Auto CPAP, Device supplies Follow up with Sleep Care in: 1 year Visit Type: In Office Time Spent with Patient (minutes): 15 Provider Statement: I spent 100% of the Face to Face Visit with the patient with greater than 50% spent counseling the patient and coordination of care.
[2023-10-06 13:12] VITALS: BP 136/66; O2SAT 98
== END 2023-10-04 11:34 | disposition home or self-care (01) ==
LOC: SC 11:33
PROVIDERS: ATTEND Internal Medicine Pulmonary Disease
DX: G47.33 Obstructive sleep apnea (adult) (pediatric) (principal)
CPT/HCPCS: 99202; G0463; 99212

== ENCOUNTER 2023-12-09 07:57 | Outpatient (CLI) | payer MEDICARE, OTHER ==
[2023-12-09 11:58] LABS: BASOPHILS % (AUTO) 1.3 %; EOSINOPHILS # (AUTO) 0.2 10^3/uL (0.0-0.7); HCT - HEMATOCRIT 38.8 % (42.0-52.0); LYMPHOCYTES # (AUTO) 0.9 10^3/uL (1.5-3.5); LYMPHOCYTES % (AUTO) 29.1 %; MEAN CORPUSCULAR HEMOGLOBIN 30.7 pg (27.0-31.0); MEAN CORPUSCULAR HGB CONC 33.5 g/dL (32.0-36.0); MEAN CORPUSCULAR VOLUME 91.7 fL (80.0-94.0); MONOCYTES # (AUTO) 0.4 10^3/uL (0.0-1.0); MONOCYTES % (AUTO) 14.1 %; NEUTROPHILS # (AUTO) 1.5 10^3/uL (1.5-6.6); NEUTROPHILS % (AUTO) 48.5 %; PLT - PLATELET COUNT 192 10^3/uL (130-450); RED BLOOD COUNT 4.23 10^6/uL (4.70-6.10); RED CELL DISTRIBUTION WIDTH 13.1 % (12.0-15.0); WHITE BLOOD COUNT 3.1 x10^3/uL (4.8-10.8)
[2023-12-09 12:22] LABS: ALBUMIN 4.4 g/dL (3.2-5.5); ALBUMIN/GLOBULIN RATIO 1.4 (1.0-2.2); BILIRUBIN,TOTAL 0.4 mg/dL (0.2-1.0); CALCIUM 9.6 mg/dL (8.5-10.3); CREATININE 1.3 mg/dL (0.6-1.3); POTASSIUM 3.8 mmol/L (3.5-4.5); TOTAL PROTEIN 7.6 g/dL (6.4-8.9)
[2023-12-10 17:09] LABS: KAPPA FREE LT CHAINS SERUM 48.9 mg/L (3.3-19.4)
== END 2023-12-09 07:58 | disposition home or self-care (01) ==
LOC: LAB 07:57
PROVIDERS: ATTEND Internal Medicine Hematology & Oncology
DX: D47.2 Monoclonal gammopathy (principal)
CPT/HCPCS: 36415; 80053; 82784; 83521; 85025; 86334

== ENCOUNTER 2023-12-16 13:39 | Outpatient (CLI) | payer MEDICARE, OTHER ==
[2023-12-16 17:49] LABS: BASOPHILS % (AUTO) 1.8 %; EOSINOPHILS % (AUTO) 5.9 %; HCT - HEMATOCRIT 35.5 % (42.0-52.0); HGB - HEMOGLOBIN 11.9 g/dL (14.0-18.0); LYMPHOCYTES % (AUTO) 29.5 %; MEAN CORPUSCULAR HEMOGLOBIN 31.3 pg (27.0-31.0); MEAN CORPUSCULAR HGB CONC 33.5 g/dL (32.0-36.0); MEAN CORPUSCULAR VOLUME 93.4 fL (80.0-94.0); MEAN PLATELET VOLUME 10.4 fL (7.4-11.4); MONOCYTES % (AUTO) 12.7 %; NEUTROPHILS % (AUTO) 50.1 %; PLT - PLATELET COUNT 179 10^3/uL (130-450); RED CELL DISTRIBUTION WIDTH 13.3 % (12.0-15.0); WHITE BLOOD COUNT 2.2 x10^3/uL (4.8-10.8)
[2023-12-16 17:57] LABS: ABNORMAL LYMPHS % (MANUAL) 0 %
[2023-12-16 18:15] LABS: ALBUMIN 4.1 g/dL (3.2-5.5); ALBUMIN/GLOBULIN RATIO 1.2 (1.0-2.2); BAND NEUTROPHILS % (MANUAL) 2 %; BILIRUBIN,TOTAL 0.2 mg/dL (0.2-1.0); CALCIUM 9.5 mg/dL (8.5-10.3); CREATININE 1.4 mg/dL (0.6-1.3); EOSINOPHILS # (MANUAL) 0.3 10^3/uL (0-0.7); LYMPHOCYTES # (MANUAL) 0.6 10^3/uL (1.5-3.5); LYMPHOCYTES % (MANUAL) 29 %; MONOCYTES # (MANUAL) 0.4 10^3/uL (0.0-1.0); NEUTROPHILS # (MANUAL) 0.8 10^3/uL (1.5-6.6); POTASSIUM 3.9 mmol/L (3.5-4.5); TOTAL PROTEIN 7.4 g/dL (6.4-8.9)
[2023-12-16 18:16] LABS: DIFFERENTIAL COMMENT MANUAL DIFFERENTIAL; PLATELET ESTIMATE, MANUAL NORMAL (130-450,000) (NORMAL); PLATELET MORPHOLOGY NORMAL APPEARANCE (NORMAL); RBC MORPHOLOGY (MULTIPLE) NORMAL APPEARANCE (NORMAL)
[2023-12-16 21:12] LABS: ESTIMATED AVERAGE GLUCOSE 154 mg/dL (70-100)
== END 2023-12-16 13:40 | disposition home or self-care (01) ==
LOC: LAB.N 13:39
PROVIDERS: ATTEND Internal Medicine Hematology & Oncology
DX: D47.2 Monoclonal gammopathy (principal); E11.9 Type 2 diabetes mellitus without complications
CPT/HCPCS: 36415; 80053; 82784; 83036; 83521; 84155; 84165; 85025; 86334

== ENCOUNTER 2024-02-13 18:19 | Emergency (ER) | payer MEDICARE, OTHER ==
[2024-02-13] MEDS: ACETAMINOPHEN 500 MG TABLET PO STA (18:47)
[2024-02-13 18:57] LABS: RAPID STREP SCREEN Negative (Negative)
[2024-02-13 20:05] LABS: CORONAVIRUS 229E-RESP PCR NOT DETECTED; CORONAVIRUS HKU1-RESP PCR NOT DETECTED; CORONAVIRUS NL63-RESP PCR NOT DETECTED; CORONAVIRUS OC43-RESP PCR NOT DETECTED
[2024-02-13 20:07] LABS: B. PARAPERTUSSIS- RESP PCR PAN NOT DETECTED; B. PERTUSSIS- RESP PCR PANEL NOT DETECTED; C. PNEUMONIAE- RESP PCR PANEL NOT DETECTED; HUMAN METAPNEUMOVIRUS NOT DETECTED; INFLUENZA A- RESP PCR PANEL NOT DETECTED; INFLUENZA B - RESP PCR PANEL NOT DETECTED; M. PNEUMONIAE- RESP PCR PANEL NOT DETECTED; PARAINFLUENZA VIRUS 1 NOT DETECTED; PARAINFLUENZA VIRUS 2 NOT DETECTED; PARAINFLUENZA VIRUS 3 NOT DETECTED; PARAINFLUENZA VIRUS 4 NOT DETECTED; RHINOVIRUS/ENTEROVIRUS NOT DETECTED; RSV- RESP PCR PANEL NOT DETECTED; SARS-CoV-2 -RESP PCR PANEL DETECTED
--- NOTE | 2024-02-13 20:12 | ED Physician Documentation ---
PD HPI HEENT - Stated complaint Stated Complaint: SORE THROAT - Chief complaint Chief Complaint: Heent - History obtained from History obtained from: Patient - Additional information Additional information: 88-year-old gentleman with CKD and history of bypass has been sick for 2 days with shaking chills, cough and fevers. His is positive for COVID. He tested negative at home though. PD PAST MEDICAL HISTORY - Past Medical History Past Medical History: Yes Cardiovascular: Hypertension, High cholesterol, Coronary artery disease, MS Respiratory: Sleep apnea, CPAP use Neuro: None Endocrine/Autoimmune: Type 2 diabetes GI: Colon polyps : Benign prostate hypertrophy HEENT: Chronic hearing loss Psych: None Musculoskeletal: Osteoarthritis Derm: None - Past Surgical History Past Surgical History: Yes General: Colonoscopy Cardiovascular: CABG, Coronary stent, Cardiac catheterization, Other - Present Medications Home Medications: Ambulatory Orders Medication Instructions Recorded Confirmed Felodipine [Felodipine ER] 10 mg PO QPM 01/31/14 10/04/23 Finasteride 5 mg PO DAILY 01/31/14 10/04/23 Metoprolol Tartrate 25 mg BID 01/31/14 10/04/23 Simvastatin 10 mg PO QPM 01/31/14 10/04/23 hydroCHLOROthiazide 25 mg DAILY 01/31/14 10/04/23 [Hydrochlorothiazide] lisinopriL [Lisinopril] 40 mg DAILY 01/31/14 10/04/23 metFORMIN [Glucophage] 1,000 mg PO DAILY 01/31/14 10/04/23 diltiaZEM CD [Cardizem Cd] 120 mg PO DAILY 12/01/22 10/04/23 Insulin Glargine [Lantus Solostar] See Rx Instructions .ROUTE .COMPLEX 01/07/23 10/04/23 Nirmatrelvir/Ritonavir [Paxlovid See Rx Instructions .ROUTE 02/13/24 150-100 mg Dose Pack] .COMPLEX #1 packet - Allergies Allergies/Adverse Reactions: Allergies Allergy/AdvReac Type Severity Reaction Status Date / Time No Known Drug Allergies Allergy Verified 02/13/24 18:26 - Social History Does the pt smoke?: No Smoking Status: Former smoker Does the pt drink ETOH?: Yes Does the pt have substance abuse?: No - Immunizations Immunizations are current?: Yes Immunizations: TDAP current <10years - POLST Patient has POLST: No PD ED PE NORMAL - Vitals Vital signs reviewed: Yes - General General: Alert and oriented X 3, No acute distress - HEENT HEENT: Pharynx benign (Post remote tonsillectomy) - Neck Neck: Supple, no meningeal sign, No bony TTP - Cardiac Cardiac: RRR, No murmur - Respiratory Respiratory: No respiratory distress, Clear bilaterally - Neuro Neuro: Alert and oriented X 3 Results - Vitals Vitals: Vital Signs - 24 hr 02/13/24 02/13/24 02/13/24 18:28 18:50 19:25 Temperature 39.4 C H 38.3 C H Heart Rate 90 86 Respiratory 20 28 H Rate Blood Pressure 173/77 H 179/71 H O2 Saturation 96 95 02/13/24 19:30 Temperature Heart Rate 76 Respiratory 21 Rate Blood Pressure 147/68 H O2 Saturation 96 Oxygen O2 Source Room air - Labs Labs: Laboratory Tests 02/13/24 02/13/24 18:40 18:40 Nasal Adenovirus (PCR) NOT DETECTED Nasal B. parapertussis DNA (PCR) NOT DETECTED Nasal Coronavir 229E PCR NOT DETECTED Nasal Coronavir HKU1 PCR NOT DETECTED Nasal Coronavir NL63 PCR NOT DETECTED Nasal Coronavir OC43 PCR NOT DETECTED Nasal Enterovir/Rhinovir PCR NOT DETECTED Nasal Influenza B PCR NOT DETECTED Nasal Influenza A PCR NOT DETECTED Nasal Parainfluen 1 PCR NOT DETECTED Nasal Parainfluen 2 PCR NOT DETECTED Nasal Parainfluen 3 PCR NOT DETECTED Nasal Parainfluen 4 PCR NOT DETECTED Nasal RSV (PCR) NOT DETECTED Nasal B.pertussis DNA PCR NOT DETECTED Nasal C.pneumoniae (PCR) NOT DETECTED Reece Human Metapneumo PCR NOT DETECTED Nasal M.pneumoniae (PCR) NOT DETECTED Nasal SARS-CoV-2 (PCR) DETECTED A Group A Strep Rapid Negative PD Medical Decision Making - ED course ED course: Strep test was negative but he is positive for COVID. We discussed pros and cons of Paxlovid and he would like to go ahead with it. His GFR is usually around 50. Departure - Departure Disposition: 01 Home, Self Care Clinical Impression: COVID-19 Condition: Good Record reviewed to determine appropriate education?: Yes Instructions: ED Viral Syndrome Prescriptions: Nirmatrelvir/Ritonavir [Paxlovid 150-100 mg Dose Pack] See Rx Instructions .ROUTE .COMPLEX #1 packet Comments: I sent your prescription electronically to the [facility] in [place]. You were found positive for COVID today and you should quarantine for the next week or so fairly strictly and then wear a mask for another few days to a week. Drink plenty of fluids. You can take Tylenol as needed for symptoms. Return if worse.
[2024-02-13 20:31] VITALS: BP 138/60; O2SAT 95
== END 2024-02-13 20:19 | disposition home or self-care (01) ==
LOC: ED 18:19
DX: U07.1 COVID-19 (principal); Z87.891 Personal history of nicotine dependence
CPT/HCPCS: 87070; 87430; 87633; 99282; 99283; A9270